=== PATIENT | female | born 1960 | race Caucasian/White ===

== ENCOUNTER 2018-10-07 16:21 | Outpatient (CLI) | payer OTHER ==
--- NOTE | 2018-10-07 16:56 | ULT ---
LIMITED SOFT TISSUE ULTRASOUND 10/07/18 PROVIDED CLINICAL HISTORY: Mass and edema with bruising. FINDINGS: Limited sonographic interrogation is performed of the left posterior upper arm in the region of palpa ble concern. There is a circumscribed focus of diminished echogenicity within the subcutaneous adipos e layer measuring about 9 mm in greatest dimension. Portions of this structure demonstrate near fluid echogenicity. Given the bruising present, this may reflect a small hematoma. IMPRESSION: Nonspecific mass present in the region of palpable concern as described above. Given the bruising pre sent, this may reflect hematoma. If this does not resolve clinically, consider further evaluation wit h MRI as indicated. POS: OFF
== END 2018-10-07 16:22 | disposition home or self-care (01) ==
LOC: BICULT 16:21
PROVIDERS: ATTEND Family Medicine
DX: R22.9 Localized swelling, mass and lump, unspecified (principal)
CPT/HCPCS: 76882

== ENCOUNTER 2020-06-07 09:54 | Outpatient (CLI) | payer BC | END 2020-06-07 09:55 | disposition home or self-care (01) | LOC: BICMAMMO 09:54 | PROVIDERS: ATTEND Nurse Practitioner Family | DX: N64.4 Mastodynia (principal) | CPT/HCPCS: 77066; G0279 ==

== ENCOUNTER 2021-06-19 14:14 | Outpatient (CLI) | payer BC | END 2021-06-19 14:15 | disposition home or self-care (01) | LOC: ULT 14:14 | PROVIDERS: ATTEND Family Medicine | DX: I05.9 Rheumatic mitral valve disease, unspecified (principal); I07.1 Rheumatic tricuspid insufficiency | CPT/HCPCS: 93306 ==

== ENCOUNTER 2022-01-03 13:17 | Outpatient (CLI) | payer BC | END 2022-01-03 13:18 | disposition home or self-care (01) | LOC: BICMAMMO 13:17 | PROVIDERS: ATTEND Family Medicine | DX: N95.1 Menopausal and female climacteric states (principal); M85.80 Other specified disorders of bone density and structure, unspecified site | CPT/HCPCS: 77080 ==